=== PATIENT | female | born 1975 | race Two or more races ===

== ENCOUNTER 2016-12-25 19:03 | Emergency (ER) | payer SELFPAY ==
[~2016-12-25] VITALS: Ht 162.6 cm; Wt 81.6 kg
[2016-12-25 19:45] LABS: BILIRUBIN,URINE NEGATIVE (NEG); GLUCOSE,URINE >=1000 mg/dL (NEG); NITRITE,URINE NEGATIVE (NEG); PROTEIN,URINE NEGATIVE (NEG-TRACE); UROBILINOGEN,URINE 0.2 mg/dL (0.2 mg/dL)
[2016-12-25 19:51] LABS: BASO # 0.1 x10^3/uL (0.0-0.2); BASO % 1 % (0-3); EOS % 5 % (0-3); HEMATOCRIT 31.1 % (36.0-47.0); HEMOGLOBIN 10.2 g/dL (12.0-15.5); LYMPH # 3.4 x10^3/uL (1.0-4.8); LYMPH % 40 % (24-48); MEAN CORPUSCULAR HEMOGLOBIN 25 pg (25-35); MEAN CORPUSCULAR HGB CONC 33 g/dL (31-37); MEAN CORPUSCULAR VOLUME 75 fL (79-100); MONO % 8 % (0-9); NEUT % 46 % (31-73); PLATELET COUNT 294 x10^3/uL (140-400); RED BLOOD COUNT 4.13 x10^6/uL (3.50-5.40); RED CELL DISTRIBUTION WIDTH 15.3 % (11.5-14.5); WHITE BLOOD COUNT 8.4 x10^3/uL (4.0-11.0)
[2016-12-25 19:53] LABS: BACTERIA,URINE 0 /HPF (0-FEW); SQUAMOUS EPITHELIAL CELL,UR FEW /LPF
[2016-12-25] MEDS ORDERED: KETOROLAC TROMETHAMINE 30 MG/ML INJ. IV ONE (20:00)
[2016-12-25 20:02] LABS: CALCIUM 8.8 mg/dL (8.5-10.1); CREATININE 0.6 mg/dL (0.6-1.0); GFR 109.6; POTASSIUM 3.8 mmol/L (3.5-5.1)
[2016-12-25 20:07] LABS: ALBUMIN 3.4 g/dL (3.4-5.0); ALBUMIN/GLOBULIN RATIO 0.8 (1.0-1.7); TOTAL BILIRUBIN 0.2 mg/dL (0.2-1.0); TOTAL PROTEIN 7.7 g/dL (6.4-8.2)
--- NOTE | 2016-12-25 22:00 | RAD ---
Pelvic ultrasound to include transabdominal and transvaginal imaging 12/25/2016 Clinical history: Heavy vaginal bleeding and pelvic pain. TECHNIQUE: Using the distended urinary bladder as a sonographic window, a real-time ultrasound examination of the pelvis was performed. Additionally in an attempt to better evaluate the uterus and adnexa, a transvaginal ultrasound study was performed. Multiple images were obtained. FINDINGS: The uterus is mildy enlarged. It measures 12.1 x 2.5 x 6.2 cm in longitudinal, transverse, and AP dimensions. A 3.9 cm nabothian cyst is seen within the cervix. The endometrial echo complex is prominent measuring 2.4 cm in thickness. The right ovary is normal in size and echogenicity. It measures 3.6 x 2.0 x 1.8 cm in size. The left ovary is normal in size. It measures 3.3 x 2.2 x 2.06 cm in size. A complex mass is seen adjacent to the left aspect of the uterus which appears to be within the left adnexa. This measures 9.2 x 7.9 x 6.9 cm in size. No free fluid is seen. IMPRESSION: 9.2 cm complex mass is seen which appears to be within the left adnexa. Differential considerations for this would include an endometrioma versus a benign or malignant ovarian neoplasm. Electronically signed by: Endy Hanson MD (12/25/2016 9:57 PM) [facility]
[2016-12-25] MEDS ORDERED: HYDR-971 PO (22:28)
[2016-12-25] MEDS ORDERED: MEDR10TA PO (22:28)
[2016-12-25] MEDS ORDERED: HYDROcodone/APAP 5/325MG 1 TAB TABLET PO ONE (22:30)
--- NOTE | 2016-12-25 22:30 | PHYS DOC ---
Past Medical History Past Medical History: Diabetes-Type II, Uterine Fibroids Past Surgical History: Cholecystectomy, Tubal ligation Alcohol Use: None Drug Use: None Adult General Chief Complaint Chief Complaint: VAGINAL BLEEDING HPI HPI Patient is a 41 year old female who presents with vaginal bleeding & pelvic pain. The patient has 2 month history of vaginal bleeding increased over past 2 weeks, heavy with clots today. She reports using 2 packages of pads per week. She reports generalized lower abdominal/pelvic pain. Denies fevers/ chills, nausea/vomiting, diarrhea, dysuria, vaginal discharge. Denies lightheadedness or syncope. She denies previous history of similar symptoms. Was previously told that she has fibroids. History of tubal ligation. Review of Systems Review of Systems Constitutional: Denies fever or chills HENT: Denies nasal congestion or sore throat Respiratory: Denies cough or shortness of breath Cardiovascular: Denies chest pain or edema GI: Reports abdominal pain, denies nausea, vomiting, or diarrhea : Reports vaginal bleeding Musculoskeletal: Denies back pain or joint pain Integument: Denies rash Neurologic: Denies headache Current Medications Current Medications Current Medications Medications (Trade) Dose Ordered Sig/Carmencita Start Time Stop Time Status Last Admin Dose Admin Acetaminophen/ Hydrocodone Bitart (Lortab 5/325) 2 tab 1X ONCE 12/25/16 22:30 12/25/16 22:31 DC 12/25/16 22:37 2 TAB Ketorolac Tromethamine (Toradol) 30 mg 1X ONCE 12/25/16 20:00 12/25/16 20:02 DC 12/25/16 20:17 30 MG Allergies Allergies Allergies Coded Allergies Type Severity Reaction Last Updated Verified No Known Drug Allergies 12/25/16 No Physical Exam Physical Exam Constitutional: Well developed, well nourished, no acute distress, non-toxic appearance. HENT: Normocephalic, atraumatic, bilateral external ears normal, oropharynx moist, nose normal. Eyes: conjunctiva normal, no discharge. Neck: supple, no stridor. Cardiovascular: RRR, no murmurs, no edema. Lungs & Thorax: LCTAB, no wheezing, no respiratory distress. Abdomen: soft, suprapubic tenderness without rebound/guarding, no masses or pulsatile masses, nondistended. : normal appearing female external genitalia with dried blood on legs, normal appearing cervix with closed os, moderate amount of dark blood & clots in vaginal vault from the cervix without active hemorrhage, no CMT, bilateral adnexal tenderness is present. Skin: Warm, dry, no erythema, no rash. Back: No CVA tenderness. Extremities: No tenderness, no edema. Neurologic: Alert and oriented X 3 Current Patient Data Vital Signs Vital Signs Date Time Temp Pulse Resp B/P (MAP) Pulse Ox O2 Delivery O2 Flow Rate FiO2 12/25/16 22:37 17 100 12/25/16 22:35 88 124/71 (88) Room Air 12/25/16 19:10 98.8 98.8 Lab Values Laboratory Tests Test 12/25/16 18:37 12/25/16 19:15 12/25/16 19:45 POC Urine HCG, Qualitative Hcg negative (Negative) Urine Collection Type Unknown Urine Color Yellow Urine Clarity Clear Urine pH 5.0 Urine Specific [facility] >=1.030 Urine Protein Negative mg/dL (NEG-TRACE) Urine Glucose (UA) >=1000 mg/dL (NEG) Urine Ketones (Stick) Negative mg/dL (NEG) Urine Blood Moderate (NEG) Urine Nitrite Negative (NEG) Urine Bilirubin Negative (NEG) Urine Urobilinogen Dipstick 0.2 mg/dL (0.2 mg/dL) Urine Leukocyte Esterase Negative (NEG) Urine RBC 3-5 /HPF (0-2) Urine WBC 1-4 /HPF (0-4) Urine Squamous Epithelial Cells Few /LPF Urine Bacteria 0 /HPF (0-FEW) Urine Mucus Slight /LPF White Blood Count 8.4 x10^3/uL (4.0-11.0) Red Blood Count 4.13 x10^6/uL (3.50-5.40) Hemoglobin 10.2 g/dL (12.0-15.5) L Hematocrit 31.1 % (36.0-47.0) L Mean Corpuscular Volume 75 fL (79-100) L Mean Corpuscular Hemoglobin 25 pg (25-35) Mean Corpuscular Hemoglobin Concent 33 g/dL (31-37) Red Cell Distribution Width 15.3 % (11.5-14.5) H Platelet Count 294 x10^3/uL (140-400) Neutrophils (%) (Auto) 46 % (31-73) Lymphocytes (%) (Auto) 40 % (24-48) Monocytes (%) (Auto) 8 % (0-9) Eosinophils (%) (Auto) 5 % (0-3) H Basophils (%) (Auto) 1 % (0-3) Neutrophils # (Auto) 3.8 x10^3uL (1.8-7.7) Lymphocytes # (Auto) 3.4 x10^3/uL (1.0-4.8) Monocytes # (Auto) 0.7 x10^3/uL (0.0-1.1) Eosinophils # (Auto) 0.4 x10^3/uL (0.0-0.7) Basophils # (Auto) 0.1 x10^3/uL (0.0-0.2) Sodium Level 135 mmol/L (136-145) L Potassium Level 3.8 mmol/L (3.5-5.1) Chloride Level 97 mmol/L (98-107) L Carbon Dioxide Level 28 mmol/L (21-32) Anion Gap 10 (6-14) Blood Urea Nitrogen 10 mg/dL (7-20) Creatinine 0.6 mg/dL (0.6-1.0) Estimated GFR (Cockcroft-Gault) 109.6 BUN/Creatinine Ratio 17 (6-20) Glucose Level 315 mg/dL (70-99) H Calcium Level 8.8 mg/dL (8.5-10.1) Total Bilirubin 0.2 mg/dL (0.2-1.0) Aspartate Amino Transferase (AST) 13 U/L (15-37) L Alanine Aminotransferase (ALT) 19 U/L (14-59) Alkaline Phosphatase 72 U/L (46-116) Total Protein 7.7 g/dL (6.4-8.2) Albumin 3.4 g/dL (3.4-5.0) Albumin/Globulin Ratio 0.8 (1.0-1.7) L Laboratory Tests 12/25/16 19:45 Laboratory Tests 12/25/16 19:45 Microbiology 12/25/16 Wet Prep - Final, Complete EKG EKG [] Radiology/Procedures Radiology/Procedures PROCEDURE: PELVIS COMPLETE Pelvic ultrasound to include transabdominal and transvaginal imaging 12/25/2016 Clinical history: Heavy vaginal bleeding and pelvic pain. TECHNIQUE: Using the distended urinary bladder as a sonographic window, a real-time ultrasound examination of the pelvis was performed. Additionally in an attempt to better evaluate the uterus and adnexa, a transvaginal ultrasound study was performed. Multiple images were obtained. FINDINGS: The uterus is mildy enlarged. It measures 12.1 x 2.5 x 6.2 cm in longitudinal, transverse, and AP dimensions. A 3.9 cm nabothian cyst is seen within the cervix. The endometrial echo complex is prominent measuring 2.4 cm in thickness. The right ovary is normal in size and echogenicity. It measures 3.6 x 2.0 x 1.8 cm in size. The left ovary is normal in size. It measures 3.3 x 2.2 x 2.06 cm in size. A complex mass is seen adjacent to the left aspect of the uterus which appears to be within the left adnexa. This measures 9.2 x 7.9 x 6.9 cm in size. No free fluid is seen. IMPRESSION: 9.2 cm complex mass is seen which appears to be within the left adnexa. Differential considerations for this would include an endometrioma versus a benign or malignant ovarian neoplasm. Electronically signed by: Endy Hanson MD (12/25/2016 9:57 PM) [facility] DICTATED and SIGNED BY: ENDY HANSON MD DATE: 12/25/162149[] Course & Med Decision Making Course & Med Decision Making Pertinent Labs and Imaging studies reviewed. (See chart for details) The patient presents with vaginal bleeding. She is otherwise well appearing, vitals stable not tachycardic or hypotensive. No focal findings on pelvic exam but ordered US for further evaluation. This shows complex mass unknown etiology. She is anemic with no previous labs for comparison. Discussed with Dr. Aguilera, recommends initiate Provera 10 mg BID x 1 week, follow up in gynecology clinic within 1 week. Discussed with the patient; she understands importance of follow up, possibility that this could be malignant. Provided pain medication, recommend hydration & rest. Come back for fever, severe pain, uncontrolled vomiting, heavy bleeding requiring greater than 1 pad per hour, any otherwise worsening condition. Discharged home in stable condition. [] Dragon Disclaimer Dragon Disclaimer This electronic medical record was generated, in whole or in part, using a voice recognition dictation system. Departure Departure Impression: Primary Impression: Menorrhagia Additional Impression: Adnexal mass Disposition: 01 HOME, SELF-CARE Condition: STABLE Referrals: NO PCP (PCP) BEVERLY AGUILERA Jr, MD Patient Instructions: Menorrhagia, [id number], Pelvic Mass Additional Instructions: You were seen in the emergency department today for vaginal bleeding. You had a mass on your left ovary in addition to heavy bleeding. It is very important to follow-up in the gynecology clinic for further evaluation. One of the possible causes of this finding would be cancer. Please take Campbell as needed for severe pain. Take Provera to control bleeding. Call the gynecology clinic in the morning to schedule an appointment within one week. Make sure they know that you were seen in the emergency department today. Return to the emergency department for high fever, severe pain, heavy bleeding requiring use of more than 1 pad per hour, any otherwise worsening condition. Scripts Medroxyprogesterone Acetate (PROVERA) 10 Mg Tablet 1 TAB PO BID, #14 TAB Prov: ELAINE COULTER MD 12/25/16 Hydrocodone/Apap 5-325 (NORCO 5-325 TABLET) 1 Each Tablet 1 TAB PO PRN Q6HRS Y for PAIN, #10 TAB 0 Refills Prov: ELAINE COULTER MD 12/25/16 Problem Qualifiers ELAINE COULTER MD Dec 25, 2016 22:30
[2016-12-25 22:35] VITALS: BP 124/71
== END 2016-12-25 23:00 | disposition home or self-care (01) ==
LOC: ER 19:03
DX: N92.0 Excessive and frequent menstruation with regular cycle (principal); N85.9 Noninflammatory disorder of uterus, unspecified; E11.9 Type 2 diabetes mellitus without complications; Z98.51 Tubal ligation status; Z90.49 Acquired absence of other specified parts of digestive tract
CPT/HCPCS: 36415; 76856; 80053; 81001; 81025; 85025; 87491; 87591; 96374; 99285; J1885; Q0111